=== PATIENT | female | born 1930 | race Caucasian/White ===

== ENCOUNTER → 2016-10-31 10:25 | Outpatient (CLI) | payer MEDICARE ==
[2016-05-29 10:19] VITALS: BMI 23.7
[~2016-10-31 10:25] MED LIST: ARICEPT5 MG PO; ASPIRIN81 MG PO; HCTZ25 MG PO; NORVASC5 MG PO; PEPCID20 MG PO; VASERETIC 10-251 TAB PO
== END | disposition home or self-care (01) ==
LOC: D.RAD 09:00
DX: I71.2 Thoracic aortic aneurysm, without rupture (principal)

== ENCOUNTER → 2016-11-08 15:22 | Outpatient (CLI) | payer MEDICARE ==
[2016-05-29 10:19] VITALS: BMI 23.7
[2016-11-08 15:43] LABS: ALBUMIN 3.6 g/dL (3.4-5.0); ANION GAP 9.9 mmol/L (8-16); BILIRUBIN - TOTAL 0.44 mg/dL (0.2-1.3); CALCIUM 9.3 mg/dL (8.5-10.1); CARBON DIOXIDE 31.7 mmol/L (21.0-32.0); CHOL - HDL RATIO 4.3 ratio (2.3-4.1); CREATININE - SERUM 1.3 mg/dL (0.6-1.3); LDL-HDL RATIO 2.9 ratio (1.5-3.5); POTASSIUM - SERUM 3.6 mmol/L (3.5-5.1); PROTEIN - SERUM 6.7 g/dL (6.4-8.2)
== END | disposition home or self-care (01) ==
LOC: D.LABREF 15:22
PROVIDERS: Family Medicine
DX: E78.5 Hyperlipidemia, unspecified (principal)

== ENCOUNTER 2017-07-16 04:02 | Inpatient (IN) | payer MEDICARE ==
[~2017-07-16] VITALS: Ht 167.6 cm; Wt 77.3 kg
--- NOTE | ~2017-07-16 | PN ---
PATIENT:ROSALIO CASTREJON MEDICAL RECORD: [id number] LOCATION:[facility] ADMISSION DATE: 07/16/17 PROGRESS NOTE DATE OF SERVICE: 07/23/2017 SUBJECTIVE: No new complaint. OBJECTIVE: The patient is stable and we anticipate discharge today. On exam, mood euthymic. Affect pleasant. Speech is somewhat tangential. Content of thought unchanged. Sensorium unchanged. ASSESSMENT: No change in diagnosis. PLAN: The patient is to be discharged later today. TRANSINT:[id number] Voice Confirmation ID: [id number] DOCUMENT ID: [id number] CAMRYN CLARKE III, MD at 1946 CC: [id number] DICTATION DATE: 07/23/17 1138 WILDLIFE AND GAME PROTECTOR: 07/23/17 1206 ADM IN [place] [id number] [place] [address]
--- NOTE | ~2017-07-16 | PN ---
PATIENT:ROSALIO CASTREJON MEDICAL RECORD: [id number] LOCATION:[facility] [place] ADMISSION DATE: 07/16/17 PROGRESS NOTE DATE OF SERVICE: 07/18/2017 SUBJECTIVE: No new complaint. OBJECTIVE: Staff report that the patient did require p.r.n. medication last night because of severe agitation and combativeness. The patient has shown a consistent pattern of worsened confusion, agitation, and combativeness in the evenings. She is poorly cooperative and often cannot be redirected at night. On exam this morning, the patient is fairly pleasant. Affect is bland. Speech tends to be terse. Content of thought is negative for overt psychosis. Sensorium unchanged. ASSESSMENT: No change in diagnosis. PLAN: 1. Maintain current medications. 2. Continue supportive therapy. TRANSINT:[id number] Voice Confirmation ID: [id number] DOCUMENT ID: [id number] CAMRYN CLARKE III, MD at 0503 CC: [id number] DICTATION DATE: 07/18/17 1143 LOPPER: 07/18/17 1216 ADM IN [place] [id number] [place] [address]
--- NOTE | ~2017-07-16 | PN ---
PATIENT:ROSALIO CASTREJON MEDICAL RECORD: [id number] LOCATION:[facility] ADMISSION DATE: 07/16/17 PROGRESS NOTE DATE OF SERVICE: 07/17/2017 SUBJECTIVE: The patient's case was discussed with staff. She has no new complaint. OBJECTIVE: The patient is in good behavioral control with limited insight about her condition. She tolerates her medicines well. ASSESSMENT: No change in diagnoses. PLAN: Current medicines and therapies have been reviewed and will be maintained. Long-term prognosis is guarded. TRANSINT:[id number] Voice Confirmation ID: [id number] DOCUMENT ID: [id number] JACQUE LYONS MD at 1418 CC: [id number] DICTATION DATE: 07/17/17 1257 RESEARCH AND DEVELOPMENT SCIENTIST: 07/17/17 1329 ADM IN [place] [id number] [place] [address]
--- NOTE | ~2017-07-16 | DS ---
PATIENT:ROSALIO CASTREJON :30 MEDICAL RECORD: [id number] DISCHARGE SUMMARY ADMISSION DATE: 07/16/17 DISCHARGE DATE: 07/23/17 IDENTIFYING DATA: The patient is 87 years old and she was admitted to the hospital on a voluntary basis secondary to confusion. The patient has a known history of dementia and her and caregiver had recently been hospitalized. Apparently, he is more intact cognitively, but less so physically. She had a caregiver at home, but the caregiver reports that the patient had become unmanageable. She was trying to leave the house, could not be redirected and became aggressive and uncontrollable. The patient had no real recollection of this. It was clear that she had an advanced dementia. She was admitted to the hospital for stabilization. HOSPITAL COURSE: The patient was admitted to the hospital and fully evaluated from both medical, psychological, and social standpoint. She was treated with both mood stabilizing and memory enhancing medications. Her long-term prognosis is guarded. She showed improvement and was subsequently transitioned back home. By the time she was transitioned out of the hospital, there were still caregivers there and her had returned. DISCHARGE DIAGNOSES: AXIS I: Senile dementia of the Alzheimer's type with behavioral disturbances. AXIS II: None. AXIS III: Hypertension, gastroesophageal reflux disease, chronic obstructive pulmonary disease, hyperlipidemia. AXIS IV: Moderate stressors. AXIS V: Global assessment of functioning is 35. PLAN: At the time of discharge, the patient was not acutely dangerous to herself or others. She was tolerating her medications well. Her long-term prognosis is guarded. TRANSINT:[id number] Voice Confirmation ID: [id number] DOCUMENT ID: [id number] JACQUE LYONS MD at 1433 CC: [id number] DICTATION DATE: 07/31/17 1320 MACHINE MAINTENANCE MECHANIC: 08/01/17 0430 DIS IN 07/23/17 [facility] [address] [place] [address]
--- NOTE | ~2017-07-16 | PN ---
PATIENT:ROSALIO CASTREJON MEDICAL RECORD: [id number] LOCATION:[facility] ADMISSION DATE: 07/16/17 PROGRESS NOTE DATE OF SERVICE: 07/22/2017 SUBJECTIVE: No new complaint. OBJECTIVE: The patient is pleasant and cooperative. She is still worried about getting a flu, but has received Tamiflu on a regular basis. She is scheduled for discharge tomorrow. On exam, mood is euthymic. Affect is bland. Speech is slightly tangential. Content of thought focuses on somatic concerns only. Sensorium shows no change. ASSESSMENT: No change in diagnosis. PLAN: 1. Continue current medications. 2. Continue supportive therapy. TRANSINT:[id number] Voice Confirmation ID: [id number] DOCUMENT ID: [id number] CAMRYN CLARKE III, MD at 1020 CC: [id number] DICTATION DATE: 07/22/17 1148 BRAND MARKETING COORDINATOR: 07/22/17 1216 ADM IN [place] [id number] [place] [address]
--- NOTE | ~2017-07-16 | PSY ---
PATIENT NAME:ROSALIO CASTREJON MEDICAL RECORD: [id number] : 30 LOCATION:[facility] [place]9 ADMISSION DATE: 07/16/17 ACCOUNT: [id number] PSYCHIATRIC EVALUATION DATE OF EVALUATION: 07/16/17 IDENTIFYING DATA: The patient is 87 years old and she is admitted to the hospital on a voluntary basis. CHIEF COMPLAINT: Confusion. HISTORY OF PRESENT ILLNESS: The patient has a known history of dementia. Her is her caregiver and unfortunately he has been hospitalized. The patient has another caregiver who assists her and reports that since the has been in the hospital the patient has been unmanageable. She has been exit seeking from the house. She has been un-redirectable and at times aggressive and uncontrollable, although the patient has no recollection of this. She is simply focused on not just getting news about her , but demanding to see him even though he still has the flu and I am not sure if he has seen her, but certainly arrangements can be attempted if possible to aid her with that, but she has been aggressive and is clearly quite impaired. PAST MEDICAL HISTORY: Significant for hypothyroidism, hypertension, COPD, hysterectomy. PAST PSYCHIATRIC HISTORY: Significant for chronic depression, anxiety and of course the established diagnosis of dementia, for which she was hospitalized here previously. FAMILY HISTORY: Negative for psychiatric disease by her account. ALLERGIES: SULFUR. CURRENT MEDICATIONS: Include Aricept, aspirin, hydrochlorothiazide, Pepcid. SOCIAL HISTORY: The patient has been to the same man for more than 60 years. They have 1 adult son who lives in [place]. She has no history of drug or alcohol abuse and apparently she functioned reasonably well both socially and occupationally. MENTAL STATUS EXAMINATION: The patient is awake, alert and oriented to person and place, but not to time or situation. Her mood is anxious. Her affect is constricted. Thought processes are circumstantial. Memory, concentration, and abstraction abilities are at least moderately impaired and she denies any active intent to harm herself or others as well as any overt psychotic symptoms. ASSETS: Supportive family members. LIABILITIES: Limited insight. DIAGNOSTIC IMPRESSION: AXIS I: Senile dementia of the Alzheimer's type with behavioral disturbances. AXIS II: None. AXIS III: Hypertension, gastroesophageal reflux disease, COPD, hyperlipidemia. AXIS IV: Moderate stressors. AXIS V: Global assessment of functioning is 30. PLAN: At this time, the patient is admitted to the hospital for a comprehensive medical, psychological, and social evaluation. She will be treated with both mood stabilizing and memory enhancing medications. Her long-term prognosis is guarded. TRANSINT:[id number] Voice Confirmation ID: [id number] DOCUMENT ID: [id number] JACQUE LYONS MD at 1240 CC: [id number] DICTATION DATE: 07/16/17 1243 BOLTING MACHINE OPERATOR: 07/16/17 1256 ADM IN [place] [id number]
--- NOTE | ~2017-07-16 | PN ---
PATIENT:ROSALIO CASTREJON MEDICAL RECORD: [id number] LOCATION:[facility] ADMISSION DATE: 07/16/17 PROGRESS NOTE DATE OF SERVICE: 07/21/2017 SUBJECTIVE: The patient's case was discussed with staff. She has no new complaint. OBJECTIVE: The patient is in good behavioral control with poor insight about her condition. She tolerates her medicines well. ASSESSMENT: No change in diagnoses. PLAN: Current medicines and therapies have been reviewed and will be maintained. Long-term prognosis is guarded. TRANSINT:[id number] Voice Confirmation ID: [id number] DOCUMENT ID: [id number] JACQUE LYONS MD at 1029 CC: [id number] DICTATION DATE: 07/21/17 1134 ADMINISTRATIVE JUDGE: 07/21/17 1223 ADM IN [address] [address]
[2017-07-16 05:17] LABS: BASOPHILS 0.7 % (0-2); EOSINOPHILS 7.1 % (0-7); HEMATOCRIT 39.8 % (36.0-48.0); HEMOGLOBIN 13.1 g/dL (12-16); IMMATURE GRANULOCYTES 0.4 % (0-5); LYMPHOCYTES 21.2 % (15-50); MCH 30.3 pg (26.0-34.0); MCHC 32.9 g/dL (31.0-37.0); MCV 91.9 fL (80.0-100.0); MEAN PLATELET VOLUME 9.2 fL (7.4-10.4); MONOCYTES 14.2 % (2-11); NEUTROPHILS 56.4 % (40-80); PLATELET COUNT 258 10x3/uL (130-400); RBC 4.33 10x6/uL (4.00-5.40); RDW 12.6 % (11.5-14.5); WBC 7.5 10x3/uL (4.8-10.8)
[2017-07-16 05:37] LABS: ALBUMIN 3.5 g/dL (3.4-5.0); ANION GAP 10.6 mmol/L (8-16); BILIRUBIN - TOTAL 0.24 mg/dL (0.2-1.3); CALCIUM 9.3 mg/dL (8.5-10.1); CARBON DIOXIDE 34.1 mmol/L (21.0-32.0); CREATININE - SERUM 1.4 mg/dL (0.6-1.3); POTASSIUM - SERUM 3.7 mmol/L (3.5-5.1); PROTEIN - SERUM 6.6 g/dL (6.4-8.2)
[2017-07-16 05:42] LABS: UDS - AMPHET NEGATIVE QUAL (NEGATIVE); UDS - BARB NEGATIVE QUAL (NEGATIVE); UDS - BENZO NEGATIVE QUAL (NEGATIVE); UDS - COCAINE NEGATIVE QUAL (NEGATIVE); UDS - OPIATE NEGATIVE QUAL (NEGATIVE); UDS - PCP NEGATIVE QUAL (NEGATIVE); UDS - THC NEGATIVE QUAL (NEGATIVE)
[2017-07-16 05:52] LABS: APPEARANCE CLEAR (CLEAR); BILIRUBIN NEGATIVE (NEGATIVE); COLOR YELLOW (YELLOW); GLUCOSE NEGATIVE (NEGATIVE); KETONE NEGATIVE (NEGATIVE); NITRITE NEGATIVE (NEGATIVE); PROTEIN NEGATIVE (NEGATIVE); SPECIFIC GRAVITY 1.025 (1.005-1.020); UROBILINOGEN NORMAL (NORMAL)
[2017-07-16 05:54] LABS: BACTERIA MODERATE /hpf (NONE SEEN); EPITHELIAL CELLS 0-5 /hpf (0-5); HYALINE CAST 0-5 /lpf (NONE SEEN); MUCUS >1+ /lpf (NONE SEEN); RED CELLS - URINE 0-5 /hpf (0-5)
[2017-07-16] MEDS ORDERED: BAYER CHEWABLE81 MG PO (07:53)
[2017-07-16 08:00] VITALS: BP 151/090
[2017-07-16 08:00] LABS: CHOL - HDL RATIO 4.8 ratio (2.3-4.1); LDL-HDL RATIO 3.3 ratio (1.5-3.5); THYROID STIMULATING HORMONE 1.68 uIU/mL (0.36-3.74)
[2017-07-16] MEDS ORDERED: VITAMIN D31000 UNI2 PO (08:01)
[2017-07-16] MEDS ORDERED: MULTIPLE VITAMI1 TA1 PO (08:01)
[2017-07-17 03:00] VITALS: BP 105/66; BMI 27.5
[2017-07-17 09:37] VITALS: BP 162/77
[2017-07-17 12:12] VITALS: BMI 27.5
[2017-07-17 20:35] VITALS: BP 150/74
[2017-07-18 07:22] LABS: FOLATE (FOLIC ACID) - SERUM >20.0 ng/mL (>3.0); RAPID PLASMA REAGIN Non Reactive (Non Reactive); VITAMIN D 25 HYDROXY 40.9 ng/mL (30.0-100.0)
[2017-07-18 09:32] VITALS: BP 127/70
[2017-07-18 20:26] VITALS: BP 171/92
[2017-07-19 08:13] VITALS: BP 132/083
[2017-07-20 07:00] VITALS: BP 141/81
[2017-07-20 19:38] VITALS: BP 152/98
[2017-07-21 08:44] VITALS: BP 151/094
[2017-07-21 19:17] VITALS: BP 137/76
[2017-07-22 07:00] VITALS: BP 147/91
[2017-07-22] MEDS ORDERED: TAMIFLU75 MG PO (11:33)
[2017-07-22] MEDS ORDERED: PERPHENAZINE2 MG PO (11:35)
[2017-07-22] MEDS ORDERED: FLORAJEN3 CAPS460 MG PO (11:35)
[2017-07-22 19:54] VITALS: BP 104/48
[2017-07-23 10:32] VITALS: BP 140/95
[2017-07-23 14:10] VITALS: Ht 167.6 cm; Wt 77.3 kg
[2017-07-23 19:31] VITALS: BP 107/59
== END 2017-07-23 15:30 | disposition home or self-care (01) | DRG 57 ==
LOC: D.ER 04:02 → OBSVTIME 06:42 → D.PSYCH 06:42
PROVIDERS: Family Medicine; Psychiatry & Neurology Psychiatry
DX: G30.9 Alzheimer's disease, unspecified (principal); F02.81 Dementia in other diseases classified elsewhere, unspecified severity, with behavioral disturbance; N17.9 Acute kidney failure, unspecified; N39.0 Urinary tract infection, site not specified; E03.9 Hypothyroidism, unspecified; I10 Essential (primary) hypertension; J44.9 Chronic obstructive pulmonary disease, unspecified; K21.9 Gastro-esophageal reflux disease without esophagitis; E78.5 Hyperlipidemia, unspecified; E55.9 Vitamin D deficiency, unspecified; Z20.89 Contact with and (suspected) exposure to other communicable diseases

== ENCOUNTER 2019-02-20 09:34 | Emergency (ER) | payer MEDICARE ==
[~2019-02-20 09:34] MED LIST changes: +BAYER CHEWABLE81 MG PO; +FLORAJEN3 CAPS460 MG PO; +MULTIPLE VITAMI1 TA1 PO; +PERPHENAZINE2 MG PO; +TAMIFLU75 MG PO; +VITAMIN D31000 UNI2 PO
[2019-02-20 09:37] VITALS: Ht 167.6 cm
[2019-02-20] MEDS ORDERED: VASOTEC10 MG PO (09:40)
[2019-02-20] MEDS ORDERED: SEROQUEL25 MG PO (09:41)
[2019-02-20] MEDS ORDERED: HYDROCHLOROTHIA25 MG PO (09:41)
[2019-02-20] MEDS ORDERED: ZOLOFT50 MG PO (09:42)
[2019-02-20 11:40] VITALS: BP 122/62
== END 2019-02-20 11:46 | disposition home or self-care (01) ==
LOC: D.ER 09:34
DX: S01.112A Laceration without foreign body of left eyelid and periocular area, initial encounter (principal); W18.30XA Fall on same level, unspecified, initial encounter; Y93.89 Activity, other specified; Y92.89 Other specified places as the place of occurrence of the external cause

== ENCOUNTER 2019-05-02 13:21 | Inpatient (IN) | payer MEDICARE ==
[~2019-05-02] VITALS: Ht 167.6 cm; Wt 84.3 kg
[~2019-05-02 13:21] MED LIST changes: +HYDROCHLOROTHIA25 MG PO; +SEROQUEL25 MG PO; +VASOTEC10 MG PO; +ZOLOFT50 MG PO
[2019-05-02] MEDS ORDERED: ATIVAN0.5 MG PO ×2 (14:06→17:27)
[2019-05-02 14:17] LABS: MAGNESIUM - SERUM 1.9 mg/dL (1.8-2.4); THYROID STIMULATING HORMONE 2.28 uIU/mL (0.36-3.74)
[2019-05-02 14:44] LABS: BASOPHILS 0.9 % (0-2); EOSINOPHILS 4.4 % (0-7); HEMATOCRIT 37.6 % (36.0-48.0); HEMOGLOBIN 11.7 g/dL (12-16); IMMATURE GRANULOCYTES 0.1 % (0-5); LYMPHOCYTES 23.1 % (15-50); MCH 29.4 pg (26.0-34.0); MCHC 31.1 g/dL (31.0-37.0); MCV 94.5 fL (80.0-100.0); MEAN PLATELET VOLUME 10.1 fL (7.4-10.4); MONOCYTES 10.3 % (2-11); NEUTROPHILS 61.2 % (40-80); PLATELET COUNT 257 10x3/uL (130-400); RBC 3.98 10x6/uL (4.00-5.40); RDW 12.6 % (11.5-14.5)
[2019-05-02 14:56] LABS: ANION GAP 7.9 mmol/L (8-16); CALCIUM 8.7 mg/dL (8.5-10.1); CARBON DIOXIDE 31.6 mmol/L (21.0-32.0); CREATININE - SERUM 1.5 mg/dL (0.6-1.3); POTASSIUM - SERUM 3.5 mmol/L (3.5-5.1)
[2019-05-02 15:04] LABS: ALBUMIN 3.1 g/dL (3.4-5.0); BILIRUBIN - TOTAL 0.3 mg/dL (0.2-1.3)
[2019-05-02 15:14] LABS: APPEARANCE SL CLDY (CLEAR); BILIRUBIN NEGATIVE (NEGATIVE); COLOR YELLOW (YELLOW); GLUCOSE NEGATIVE (NEGATIVE); KETONE NEGATIVE (NEGATIVE); NITRITE NEGATIVE (NEGATIVE); PROTEIN TRACE mg/dL (NEGATIVE); UROBILINOGEN NORMAL (NORMAL)
[2019-05-02 15:15] LABS: BACTERIA FEW /hpf (NEGATIVE); RED CELLS - URINE 0-5 /hpf (0-5); WHITE CELLS - URINE 0-5 /hpf (NEGATIVE)
[2019-05-02 15:16] LABS: GRANULAR CAST RARE /lpf (NONE SEEN); HYALINE CAST 0-5 /lpf (NONE SEEN); MUCUS <1+ /lpf (NONE SEEN)
[2019-05-02 15:20] LABS: UDS - AMPHET NEGATIVE QUAL (NEGATIVE); UDS - BARB NEGATIVE QUAL (NEGATIVE); UDS - BENZO NEGATIVE QUAL (NEGATIVE); UDS - COCAINE NEGATIVE QUAL (NEGATIVE); UDS - OPIATE NEGATIVE QUAL (NEGATIVE); UDS - PCP NEGATIVE QUAL (NEGATIVE); UDS - THC NEGATIVE QUAL (NEGATIVE)
--- NOTE | 2019-05-02 17:00 | NUR ---
PT HAS SEVERAL RINGS NOTED TO BILATERAL HANDS. PT REFUSES TO REMOVE RINGS AT THIS TIME.
--- NOTE | 2019-05-02 17:07 | NUR ---
PT ADMITTED TO GROUP HOME FROM HOME. PT WAS BROUGHT TO ER DUE TO REFUSING CARE AND MEDICATIONS, NOT SLEEPING X 3 DAYS, AND LOOKING FOR . PT LIVES AT HOME WITH CAREGIVER MITESH LOVETT. VERBAL CONSENT FROM [facility]. MITESH LOVETT # [phone] CAREGIVER. PT IS CODE STATUS IS DNR. CODEWORD IS [facility]. PT IS AMBULATORY WITH WALKER. CONT. OF B&B WITH INCOMT EPISODES. NO HISTORY OF SMOKING OR ALCOHOL. BRITNEY CASTREJON # . PT HAD FLU SHOT 04/2019 AND PNEUMOCOCCAL VACCINE 2015 PER CAREGIVER. PT WAS ON HOSPICE FOR DEMENTIA PER CAREGIVER. HOSPICE WAS REVOKED PER CAREGIVER BEFORE WAS BROUGHT TO ER. PT TAKES MEDS CRUSHED IN CHOCOLATE PUDDING AT HOME PER CAREGIVER.
[2019-05-02] MEDS ORDERED: PERPHENAZINE2 MG (17:28)
[2019-05-02] MEDS ORDERED: SEROQUEL25 MG PO (17:28)
[2019-05-02] MEDS ORDERED: NORVASC5 MG PO (17:29)
[2019-05-02] MEDS ORDERED: VASOTEC10 MG (17:30)
[2019-05-02 17:32] VITALS: BP 116/80; BMI 29.5
[2019-05-02 17:43] LABS: CHOL - HDL RATIO 6.4 ratio (2.3-4.1); LDL-HDL RATIO 4.3 ratio (1.5-3.5); THYROID STIMULATING HORMONE 2.33 uIU/mL (0.36-3.74)
--- NOTE | 2019-05-02 19:14 | NUR ---
PT HAS CLOR OF SILVER BRACLET NOTED TO WRIST. PT REFUSES TO LET STAFF REMOVE AT THIS TIME.
[2019-05-02] MEDS ORDERED: PROVENTIL/2.5 MG/3 M INH (19:16)
--- NOTE | 2019-05-02 20:08 | NUR ---
RECEIVED IN DAYROOM. SITTING IN A CHAIR WITH PEERS AT HER SIDE. CALM AND COOPERATIVE WITH CARE AND ASSESSMENT. REDIRECT AND REORIENT NEEDED. CONTINUES TO SIT CALMLY. CONTINUE PLAN OF CARE
[2019-05-02 20:16] VITALS: BP 93/69
[2019-05-03 08:15] VITALS: BP 130/64
--- NOTE | 2019-05-03 14:05 | NUR ---
PT IS AWAKE AND ALERT TO PERSON ONLY. CALM AND COOPERATIVE WITH ASSESSMENT. PT CAN BE VERY DEMANDING WITH STAFF, HARD TO REDIRECT AT TIMES. PT IS VERY CONFUSED ABOUT SITUATION. REDIRECT AND REORIENT NEEDED. FALL PRECAUTIONS IN PLACE. PT DOES AMBULATE WITH WALKER. WILL CPOC.
[2019-05-03 16:02] VITALS: Ht 167.6 cm; Wt 84.3 kg
[2019-05-03 20:06] VITALS: BP 125/80
--- NOTE | 2019-05-03 21:19 | NUR ---
RECEIVED IN DAYROOM. MOVING ABOUT TALKING TO STAFF AND PEERS. CONFUSED. CALM AND COOPERATIVWE WITH CARE AND ASSESSMENT. REDIRECT AND REORIENT NEEDED. GETTING READY FOR BED AT THIS TIME. CONTINUE PLAN OF CARE
[2019-05-04 07:13] LABS: RAPID PLASMA REAGIN Non Reactive (Non Reactive)
[2019-05-04 08:00] VITALS: BP 130/82
--- NOTE | 2019-05-04 11:23 | HP ---
PATIENT: ROSALIO CASTREJON MEDICAL RECORD: [id number] ACCOUNT: [id number] LOCATION:[facility] [place]9 : 30 ADMISSION DATE: 05/02/19 PCP: DAFNE HART DO HISTORY AND PHYSICAL EXAMINATION IDENTIFYING DATA: The patient is 89 years old and she is known to me from previous clinical contact. CHIEF COMPLAINT: Psychosis. HISTORY OF PRESENT ILLNESS: The patient has a known history of dementia. She has been living at home and apparently has been refusing care and medications. She has also been actively hallucinating, seeing her . Apparently, she is on hospice for dementia, even though she does not have any sort of immediately terminal kind of event. PAST MEDICAL HISTORY: Significant for hypertension, COPD, and coronary artery disease. PAST PSYCHIATRIC HISTORY: Significant for an established diagnosis of dementia with the patient being hospitalized here about 3 years ago for similar behaviors. FAMILY HISTORY: Noncontributory. SOCIAL HISTORY: The patient is . She does have an adult son with whom she lives. She has no history of drug or alcohol abuse and she formally smoked cigarettes, but no longer does so. ALLERGIES: SULFA. CURRENT MEDICATIONS: Include Albuterol updrafts. MENTAL STATUS EXAMINATION: The patient is awake, alert, and oriented to person and place, but not to time or situation. Her mood is flat. Her affect is constricted. Thought processes are circumstantial. Memory, concentration, and abstraction abilities are moderately impaired and she denies any intent to harm herself or others as well as any overt psychotic symptoms. ASSETS: Supportive family members. LIABILITIES: Limited insight. DIAGNOSTIC IMPRESSION: Major neurocognitive disorder of the Alzheimer's type, advanced chronic obstructive pulmonary disease, hypertension, and coronary artery disease. PLAN: At this time, the patient is admitted to the hospital for a comprehensive medical, psychological, and social evaluation. She will be treated with both mood stabilizing and memory enhancing medications. Her long-term prognosis is guarded. TRANSINT:[id number] Voice Confirmation ID: [id number] DOCUMENT ID: [id number] HISTORY AND PHYSICAL [id number] ROSALIO CASTREJON PETER MD at 1123 CC: [id number] DICTATION DATE: 05/03/191729 SANITATION WORKER CLEANING MACHINERY: 10/21/19 1915 ADM IN [facility] [address] [place] [address]
--- NOTE | 2019-05-04 15:10 | NUR ---
PT IS AWAKE AND ALERT TO PERSON ONLY. CALM AND COOPERATIVE WITH ASSESSMENT. MED COMPLIANT. PT CAN BE VERY DEMANDING WITH STAFF AT TIMES. MED COMPLIANT. REDIRECT AND REORIENT NEEDED. FALL PRECAUTIONS IN PLACE. WILL CPOC.
--- NOTE | 2019-05-04 15:25 | NUR ---
PT VERY COMBATIVE WITH CARE. PT ATTEMPTED TO HIT STAFF SEVERAL TIMES. PT DID KICK STAFF. PT REDIRECT AND REORIENT. PT VERY DEMAMDING WITH STAFF AT THIS TIME. PT STATES " I WILL KILL YOU TO THIS NURSE. "
--- NOTE | 2019-05-04 19:47 | NUR ---
RECEIVED IN DAYROOM. SITTING IN A WHEELCHAIR WITH PEERS AT HER SIDE. CALM AND COOPERATIVE WITH CARE AND ASSESSMENT. REDIRECT AND REORIENT NEEDED. CONTINUES TO SIT QUIETLY. CONTINUE PLAN OF CARE
[2019-05-04 20:09] VITALS: BP 129/78
--- NOTE | 2019-05-05 10:00 | NUR ---
RECEIVED PATIENT IN DINING ROOM FOR B'FAST, ALERT, CALM, COOPERATIVE, NO FURTHER EPISODES OF COMBATIVENESS NOTED. MEDS ADMIN PER ORDERS WITH COMPLETE MED COMPLIANCE NOTED. COOPERATIVE WITH CARE PLAN. CONT PLAN OF CARE DIRECTED.
[2019-05-05 10:31] VITALS: BP 116/63
--- NOTE | 2019-05-05 12:53 | PN ---
PATIENT:ROSALIO CASTREJON MEDICAL RECORD: [id number] LOCATION:[facility] ADMISSION DATE: 05/02/19 PROGRESS NOTE DATE OF SERVICE: 05/04/2019 SUBJECTIVE: The patient's case was discussed with staff. She has no new complaint. OBJECTIVE: The patient denies that she would seek to harm herself or others. She is tolerating her medicines well. ASSESSMENT: Dementia. PLAN: Current medicines have been reviewed and will be maintained. Long-term prognosis is guarded. TRANSINT:[id number] Voice Confirmation ID: [id number] DOCUMENT ID: [id number] JACQUE LYONS MD at 1253 CC: [id number] DICTATION DATE: 05/04/19 1139 ART STUDIO TEACHER: 05/04/19 1144 ADM IN [place] [address] [place] [address]
--- NOTE | 2019-05-05 18:51 | NUR ---
RECEIVED IN DAYROOM. SITTING IN A CHAIR WITH PEERS AT HER SIDE. CALM AND COOPERATIVE WITH CARE AND ASSESSMENT. WALKING AROUND AT TIMES. CONFUSED. REDIRECT AND REORIENT NEEDED. CONTINUES TO SIT IN DAYROOM. CONTINUE PLAN OF CARE
[2019-05-05 20:01] VITALS: BP 102/60
[2019-05-06 08:50] VITALS: BP 145/64
--- NOTE | 2019-05-06 12:10 | NUR ---
NUTRITION F/U PT TOLERATING REG DIET. PO INTAKE SLIGHTLY < 50% AVERAGE RECENT MEALS. NO NEW WT TO ASSESS. +BM 05/04/19. PT RECEIVING ENSURE WITH MEALS. RD FOLLOWING
--- NOTE | 2019-05-06 13:40 | NUR ---
B) The patient is awake and she is conversing with other patients, she is confused and has poor insight into her situation. She ambulates with a walker. She is able to stay focused on one thing at a time ie she is unable to eat and stop coloring. I) Provide prescribed meds. R) The patient is compliant with meds and unit milieu at this time. P) Continue POC.
--- NOTE | 2019-05-06 15:01 | PN ---
PATIENT:ROSALIO CASTREJON MEDICAL RECORD: [id number] LOCATION:[facility] ADMISSION DATE: 05/02/19 PROGRESS NOTE DATE OF SERVICE: 05/05/2019 SUBJECTIVE: The patient's case was discussed with staff. She has no new complaint. OBJECTIVE: The patient is in good behavioral control, but earlier today was aggressive. She has also been seen to be actively hallucinating ASSESSMENT: Dementia. PLAN: The patient will be given Trilafon to assist with her thought disorganization. She will be monitored for clinical changes associated with its use. Long-term prognosis is guarded. TRANSINT:[id number] Voice Confirmation ID: [id number] DOCUMENT ID: [id number] JACQUE LYONS MD at 1501 CC: [id number] DICTATION DATE: 05/05/19 170 PRODUCT OWNER: 05/05/19 2300 ADM IN [place] [id number] [place] [id number]
[2019-05-06 20:20] VITALS: BP 97/78
--- NOTE | 2019-05-06 22:12 | NUR ---
REC'D SITTING IN THE DAYROON. INTERACTS WITH STAFF WHEN APPROACHED. PATIENT WILL APPROACH STAFF ASKING WHERE HER IS. RELATES SHE WANTS TO GO HOME AND BE WITH HER AND DOES NOT UNDERSTAND WHY HE IS NOT HERE. ADMINISTER MEDS AND MONITOR COMPLIANCE. REORIENT NEEDED. MED COMPLIANT. POOR REORIENTATION DUE TO IMPAIRED ABILITY TO PROCESS AND COMPREHEND INFORMATION. CONTINUE POC AND PROVIDE SAFE ENVIRONMENT.
--- NOTE | 2019-05-07 07:46 | NUR ---
B) The patient is awake, she has poor insight into her situation. She is confused. She is not able to stay focused. She ambulates independently, but she gets off balance easily. I) Provide prescribed meds. R) The patient is compliant with meds. P) Continue POC.
[2019-05-07 09:39] VITALS: BP 99/75
--- NOTE | 2019-05-07 14:20 | NUR ---
PATIENT WAS YELLING OUT WHEN GETTING SHOWERED. PT WOULD NOT CALM DOWN DURING SHOWER YELLING OUT"HELP COME GET ME. HELP" STAFF ATTEMPTED TO REDIRECT. UNABLE TO REDIRECT. PT DID ALLOW TO FINISH SHOWER.
--- NOTE | 2019-05-07 14:51 | PN ---
PATIENT:ROSALIO CASTREJON MEDICAL RECORD: [id number] LOCATION:[facility] ADMISSION DATE: 05/02/19 PROGRESS NOTE DATE OF SERVICE: 05/06/2019 SUBJECTIVE: The patient's case was discussed with staff. She has no new complaint. OBJECTIVE: The patient is in good behavioral control with limited insight about her condition. She has had no hallucinations observed today. ASSESSMENT: Dementia. PLAN: Supportive and educational interventions were made. Current medications will be maintained. TRANSINT:[id number] Voice Confirmation ID: [id number] DOCUMENT ID: [id number] JACQUE LYONS MD at 1451 CC: [id number] DICTATION DATE: 05/06/19 1552 COFFEE ROASTER: 05/06/19 1629 ADM IN [place] [address] [place] [address]
--- NOTE | 2019-05-07 23:22 | NUR ---
B.) PT IS ALERT AND ORIENTED TO SELF ONLY. SHE HAS POOR INSIGHT INTO HER SITUATION. SHE CONTINUES TO LOOK FOR HER . SHE IS ABLE TO AMBULATE WITH WALKER. SHE CAN MAKE HER NEEDS KNOWN. I.) PROVIDE PM MEDICATION. R.) COMPLIANT WITH ALL MEDICATIONS. P.) CONTINUE PLAN OF CARE
--- NOTE | 2019-05-08 08:02 | PN ---
PATIENT:ORSALIO CASTREJON MEDICAL RECORD: [id number] LOCATION:[facility] ADMISSION DATE: 05/02/19 PROGRESS NOTE DATE OF SERVICE: 05/07/2019 SUBJECTIVE: The patient's case was discussed with staff. She has no new complaint. OBJECTIVE: The patient is disorganized with impairment in her short-term memory. She is only partially oriented. She is not having active hallucinations today and her paranoia appears to be better. ASSESSMENT: Dementia. PLAN: As above. The patient's psychotic symptoms have improved. I am encouraged by this. I see no evidence of side effects and I intend to maintain current medicines. TRANSINT:[id number] Voice Confirmation ID: [id number] DOCUMENT ID: [id number] JACQUE LYONS MD at 0802 CC: [id number] DICTATION DATE: 05/07/19 151 INNOVATION MANAGER: 05/07/192125 ADM IN [facility] [address] [place] [address]
[2019-05-08 09:16] VITALS: BP 107/79
--- NOTE | 2019-05-08 10:50 | NUR ---
The patient is awake, but she is confused, she has poor insight into her situation. She also has poor short term memory recall. She has asked multiple times. "How do I get out of here." She keeps saying she is going outside. She ambulates with a walker. She has not shown any aggression today. Provide prescribed meds. The patient is compliant with meds. COntinue POC.
--- NOTE | 2019-05-08 19:54 | NUR ---
RECEIVED IN DAYROOM. WATCHING TV. CALM AND COOPERATIVE WITH CARE AND ASSESSMENT. CONFUSED. ASKS ABOUT . REDIRECT AND REORIENT NEEDED. CONTINUES TO WATCH TV WHILE WAITING ON PM MEDICATIONS. CONTINUE PLAN OF CARE.
[2019-05-08 20:00] VITALS: BP 110/70
[2019-05-09 08:00] VITALS: BP 116/49
--- NOTE | 2019-05-09 17:00 | NUR ---
PATIENT HAS HAD UNEVENTFUL DAY THIS SHIFT, ALERT, CALM, COOPERATIVE, CONFUSED. CONTINUES TO ASK ABOUT HER DISCHARGE. MEDS SYLVIA PER ORDERS WITH COMPLETE MED COMPLIANCE NOTED. CONT PLAN OF CARE DIRECTED.
[2019-05-09 20:10] VITALS: BP 108/64
--- NOTE | 2019-05-10 04:35 | NUR ---
B.) PT IS ALERT AND ORIENTED TO SELF ONLY. SHE IS RECEIVED IN A CHAIR SOCIALIZING WITH PEERS. SHE IS PLEASANT WITH STAFF AND PEERS. SHE IS ABLE TO MAKE HER NEEDS KNOWN. I.) REDIRECT NEEDED. PROVIDE PM MEDICATIONS. R.) EASY TO REDIRECT. COMPLIANT WITH ALL MEDICATIONS. P.) CONTINUE PLAN OF CARE
[2019-05-10 08:28] VITALS: BP 114/54
--- NOTE | 2019-05-10 11:45 | NUR ---
REC'D PT IN HALLWAY SOCIALIZING WITH PEERS. AWAKE AND ALERT TO PERSON ONLY. CALM AND COOPERATIVE WITH ASSESSMENT. NO BEHAVIORS NOTED AT THIS TIME. REDIRECT AND REORIENT NEEDED. MED COMPLIANT. FALL PRECAUTIONS IN PLACE. WILL CPOC.
--- NOTE | 2019-05-10 15:49 | PN ---
PATIENT:ROSALIO CASTREJON MEDICAL RECORD: [id number] LOCATION:[facility] ADMISSION DATE: 05/02/19 PROGRESS NOTE DATE OF SERVICE: 05/09/2019 SUBJECTIVE: The patient's case was discussed with staff. She has no new complaint. OBJECTIVE: The patient denies intent to harm herself or others. She is tolerating her medicines well. Eye contact is fair. ASSESSMENT: Dementia. PLAN: Supportive and educational interventions were made. Long-term prognosis is guarded. TRANSINT:[id number] Voice Confirmation ID: [id number] DOCUMENT ID: [id number] JACQUE LYONS MD at 1549 CC: [id number] DICTATION DATE: 05/09/19 1201 COSMETIC SURGEON: 05/09/19 1212 ADM IN [place] [id number] [place] [address]
--- NOTE | 2019-05-10 15:49 | PN ---
PATIENT:ROSALIO CASTREJON MEDICAL RECORD: [id number] LOCATION:[facility] ADMISSION DATE: 05/02/19 PROGRESS NOTE DATE OF SERVICE: 05/08/2019 SUBJECTIVE: The patient's case was discussed with staff. She has no new complaint. OBJECTIVE: The patient is in good behavioral control. She is denying that she would seek to harm herself or others. She is eating marginally well and sleeping adequately. ASSESSMENT: Dementia. PLAN: Supportive and educational interventions were made. Long-term prognosis guarded. TRANSINT:[id number] Voice Confirmation ID: [id number] DOCUMENT ID: [id number] JACQUE LYONS MD at 1549 CC: [id number] DICTATION DATE: 05/08/19 08 CHILD WELFARE CASEWORKER: 05/08/19 0849 ADM IN [place] [id number] [place] [address]
[2019-05-10] MEDS ORDERED: PERPHENAZINE2 MG PO (16:39)
[2019-05-10] MEDS ORDERED: DONEPEZIL HCL5 MG PO (16:39)
[2019-05-10 20:05] VITALS: BP 140/72
--- NOTE | 2019-05-10 21:17 | NUR ---
RECEIVED IN DAYROOM. SITTING IN A CHAIR WITH PEERS AT HER SIDE. CALM AND COOPERATIVE WITH CARE AND ASSESSMENT. SOCIAL AT TIMES WITH PEERS. ENCOURAGE TO EXPRESS NEEDS. REDIRECT AND REORIENT NEEDED. CONTINUES TO SIT QUIETLY IN DAYROOM. CONTINUE PLAN OF CARE
[2019-05-11 08:18] VITALS: BP 115/79
--- NOTE | 2019-05-11 15:28 | PN ---
PATIENT:ROSALIO CASTREJON MEDICAL RECORD: [id number] LOCATION:[facility] ADMISSION DATE: 05/02/19 PROGRESS NOTE DATE OF SERVICE: 05/10/2019 SUBJECTIVE: The patient's case was discussed with staff. She has no new complaint. OBJECTIVE: The patient is in good behavioral control with limited insight about her condition. She does tolerate her medicines well. She is eating marginally well, although she is still somewhat overweight, but I certainly do not want her to lose weight precipitously. She is sleeping very adequately. ASSESSMENT: Dementia. PLAN: The patient is much less paranoid than she had been. She is going to be discharged home with her caregiver. Her long-term prognosis is guarded. Followup will be with her primary care physician. TRANSINT:[id number] Voice Confirmation ID: [id number] DOCUMENT ID: [id number] JACQUE LYONS MD at 1528 CC: [id number] DICTATION DATE: 05/10/19 1639 SHIPYARD PAINTER: 05/10/19 2157 ADM IN [place] [id number] [place] [address]
--- NOTE | 2019-05-12 14:20 | PN ---
PATIENT:ROSALIO CASTREJON MEDICAL RECORD: [id number] LOCATION:[facility] ADMISSION DATE: 05/02/19 PROGRESS NOTE DATE OF SERVICE: 05/11/2019 SUBJECTIVE: The patient's case was discussed with staff. She has no new complaint. OBJECTIVE: The patient is in good behavioral control with poor insight about her condition. She tolerates her medicines well. ASSESSMENT: No change in diagnoses. PLAN: The patient will be transitioned out of the hospital today. Her long-term prognosis is guarded. Followup will be with her primary care physician. TRANSINT:[id number] Voice Confirmation ID: [id number] DOCUMENT ID: [id number] JACQUE LYONS MD at 1420 CC: [id number] DICTATION DATE: 05/11/19 1553 WASTE RECLAIMER: 05/11/19 2348 DIS IN 05/11/19 [id number] [place] [address]
--- NOTE | 2019-05-13 15:25 | DS ---
PATIENT:ROSALIO CASTREJON :30 MEDICAL RECORD: [id number] DISCHARGE SUMMARY ADMISSION DATE: 05/02/19 DISCHARGE DATE: 05/11/19 IDENTIFYING DATA: The patient is 89 years old and she is known to me from previous clinical contact. The patient has a known history of dementia and is living at home. She has been refusing care and medications. She has been actively hallucinating and seeing her . She is admitted to the hospital because of these symptoms. HOSPITAL COURSE: The patient was admitted to the hospital and fully evaluated from both a medical, psychological, and social standpoint. She was treated with both mood stabilizing and memory enhancing medications and showed significant improvement in her behavior and was subsequently discharged from the hospital. DISCHARGE DIAGNOSES: 1. Major neurocognitive disorder of the Alzheimer's type. 2. Chronic obstructive pulmonary disease. 3. Hypertension. 4. Coronary artery disease. PLAN: The patient at the time of discharge was not acutely dangerous to herself or others. She was tolerating her medicines well. She denies that she would seek to harm herself or others. She is going to have follow up with her primary care physician. TRANSINT:[id number] Voice Confirmation ID: [id number] DOCUMENT ID: [id number] JACQUE LYONS MD at 1525 CC: [id number] DICTATION DATE: 05/12/19 1506 AGRI BUSINESS AGENT: 05/13/19 0422 DIS IN 05/11/19 [facility] [address] [place] [address]
== END 2019-05-11 14:15 | disposition home or self-care (01) | DRG 57 ==
LOC: D.ER 13:21 → D.PSYCH 16:45 → D.ER 16:47 → D.PSYCH 05-11 14:15
PROVIDERS: Emergency Medicine; ADMIT Psychiatry & Neurology Psychiatry; ATTEND Psychiatry & Neurology Psychiatry
DX: G30.9 Alzheimer's disease, unspecified (principal); F02.81 Dementia in other diseases classified elsewhere, unspecified severity, with behavioral disturbance; J44.9 Chronic obstructive pulmonary disease, unspecified; G89.29 Other chronic pain; D64.9 Anemia, unspecified; I12.9 Hypertensive chronic kidney disease with stage 1 through stage 4 chronic kidney disease, or unspecified chronic kidney disease; N18.9 Chronic kidney disease, unspecified; E78.5 Hyperlipidemia, unspecified; M19.90 Unspecified osteoarthritis, unspecified site